=== PATIENT | female | born 1940 | race African-American/Black ===

== ENCOUNTER 2017-07-07 10:54 | Emergency (ER) | payer MEDICARE ==
[~2017-07-07] VITALS: Ht 160 cm; Wt 70.0 kg
[~2017-07-07 10:54] MED LIST: ASPIRIN EC81 MG PO; CELEBREX200 MG PO; FLEXERIL PO; FOSAMAX70 MG OR; IBUPROFEN200 M1 OR; LIPITOR20 MG PO; LIPITOR80 MG OR; LORTAB 7.57.5 MG PO; MULTI VIT PO; NAPROSYN500 MG PO; OMEPRAZOLE20 M2 PO; OS-CAL 500500 M1 PO; ULTRAM50 MG PO; VITAMIN E100 UNI1 PO
[2017-07-07 13:41] LABS: URINE BILIRUBIN - DIPSTICK NEGATIVE (NEGATIVE); URINE BLOOD DIPSTICK NEGATIVE (NEGATIVE); URINE CLARITY CLEAR; URINE COLOR YELLOW; URINE GLUCOSE - DIPSTICK NEGATIVE (NEGATIVE); URINE KETONE 40 mg/dL (NEGATIVE); URINE LEUK ESTERASE MODERATE (NEGATIVE); URINE NITRITE - DIPSTICK NEGATIVE (Negative); URINE PH 8.5 (4.5-8.0); URINE PROTEIN - DIPSTICK NEGATIVE (NEG-TRACE); URINE UROBILINOGEN - DIPSTICK 0.2 E.U./dL (0.2)
[2017-07-07 13:51] LABS: HEMATOCRIT 42.5 % (37.0-47.0); IMMATURE GRANULOCYTES 0.2 % (0.0-1.0); MEAN CELL VOLUME 79.7 fL CALC (80.0-100.0); MEAN CORPUSCULAR HGB 24.4 pG CALC (26.0-32.0); MEAN CORPUSCULAR HGB CONC 30.6 g/L CALC (32.0-36.0); NEUT# 2.4 thou/uL (2.00-7.15); RED BLOOD COUNT 5.33 mill/uL (4.20-5.60)
[2017-07-07 14:01] LABS: URINE BACTERIA FEW hpf; URINE SQUAMOUS EPITHELIAL CELL MODERATE EPI/hpf (0-FEW)
[2017-07-07 14:15] LABS: ALBUMIN 4.7 g/dL (3.2-5.0); ALKALINE PHOSPHATASE 102 u/l (38-126); ANION GAP 19 (6-22 (CALC)); BILIRUBIN, TOTAL 0.6 mg/dL (0.0-1.4); BUN 10 mg/dL (8-23); BUN/CREATININE RATIO 12 (12-20 (CALC)); CARBON DIOXIDE 27 mmol/l (22-30); CHLORIDE 104 mmol/l (95-108); CREATININE 0.9 mg/dL (0.5-1.0); GFR > 60 ML/MIN (>=60 (CALC)); GFR FOR AFR.AMER. > 60 ML/MIN (>=60 (CALC)); LIPASE 65 u/l (23-300); SGOT/AST 27 u/l (9-36); SGPT/ALT 22 u/l (11-66); SODIUM 145 mmol/l (137-146); TOTAL PROTEIN 8.1 g/dL (6.3-8.2)
[2017-07-07] MEDS ORDERED: CEPHALEXIN500 M1 PO (15:30)
[2017-07-07 15:50] VITALS: BP 118/72
== END 2017-07-07 15:57 | disposition home or self-care (01) ==
LOC: ED 10:54
PROVIDERS: Family Medicine
DX: N39.0 Urinary tract infection, site not specified (principal); E78.5 Hyperlipidemia, unspecified; B95.4 Other streptococcus as the cause of diseases classified elsewhere
CPT/HCPCS: Q9967

== ENCOUNTER 2017-07-09 06:08 | Emergency (ER) | payer MEDICARE ==
[~2017-07-09] VITALS: Ht 160 cm; Wt 80.9 kg
[~2017-07-09 06:08] MED LIST changes: +CEPHALEXIN500 M1 PO
[2017-07-09 07:36] LABS: HEMOGLOBIN 12.5 g/dl (12.0-16.0); IMMATURE GRANULOCYTES 0.3 % (0.0-1.0); MEAN CELL VOLUME 79.8 fL CALC (80.0-100.0); MEAN CORPUSCULAR HGB 24.3 pG CALC (26.0-32.0); MEAN CORPUSCULAR HGB CONC 30.5 g/L CALC (32.0-36.0); NEUT# 1.88 thou/uL (2.00-7.15); RED BLOOD COUNT 5.14 mill/uL (4.20-5.60); RED CELL DISTRI WIDTH 14.9 % (11.5-15.5)
[2017-07-09 07:47] LABS: ALBUMIN 4.4 g/dL (3.2-5.0); ALKALINE PHOSPHATASE 85 u/l (38-126); AMYLASE 45 u/l (30-110); ANION GAP 16 (6-22 (CALC)); BILIRUBIN, TOTAL 0.5 mg/dL (0.0-1.4); BUN 8 mg/dL (8-23); BUN/CREATININE RATIO 10 (12-20 (CALC)); CARBON DIOXIDE 26 mmol/l (22-30); CHLORIDE 107 mmol/l (95-108); CREATININE 0.9 mg/dL (0.5-1.0); GFR > 60 ML/MIN (>=60 (CALC)); GFR FOR AFR.AMER. > 60 ML/MIN (>=60 (CALC)); LIPASE 45 u/l (23-300); POTASSIUM 4.6 mmol/l (3.5-5.1); SGOT/AST 21 u/l (9-36); SGPT/ALT 25 u/l (11-66); SODIUM 145 mmol/l (137-146); TOTAL PROTEIN 7.4 g/dL (6.3-8.2)
[2017-07-09] MEDS ORDERED: COQ10100 MG PO (08:44)
[2017-07-09] MEDS ORDERED: CRESTOR5 MG PO (08:44)
[2017-07-09 09:31] LABS: URINE BILIRUBIN - DIPSTICK NEGATIVE (NEGATIVE); URINE BLOOD DIPSTICK NEGATIVE (NEGATIVE); URINE COLOR YELLOW; URINE GLUCOSE - DIPSTICK NEGATIVE (NEGATIVE); URINE KETONE TRACE mg/dL (NEGATIVE); URINE NITRITE - DIPSTICK NEGATIVE (Negative); URINE PH 8.5 (4.5-8.0); URINE PROTEIN - DIPSTICK NEGATIVE (NEG-TRACE)
[2017-07-09 09:32] LABS: URINE CLARITY SL CLOUDY; URINE LEUK ESTERASE SMALL (NEGATIVE)
[2017-07-09 09:40] LABS: URINE BACTERIA FEW hpf; URINE SQUAMOUS EPITHELIAL CELL FEW EPI/hpf (0-FEW)
[2017-07-09] MEDS ORDERED: ULTRAM50 M1 PO (09:52)
[2017-07-09 10:20] VITALS: BP 137/65
== END 2017-07-09 10:20 | disposition home or self-care (01) ==
LOC: ED 06:08
PROVIDERS: Emergency Medicine
DX: N39.0 Urinary tract infection, site not specified (principal); M25.551 Pain in right hip; M25.552 Pain in left hip

== ENCOUNTER 2017-11-06 10:05 | Emergency (ER) | payer MEDICARE ==
[~2017-11-06] VITALS: Ht 160 cm; Wt 81.0 kg
[~2017-11-06 10:05] MED LIST changes: +COQ10100 MG PO; +CRESTOR5 MG PO; +ULTRAM50 M1 PO
[2017-11-06] MEDS ORDERED: ALENDRONATE SOD70 MG PO (10:27)
[2017-11-06] MEDS ORDERED: VENTOLIN HFA IN (10:59)
[2017-11-06] MEDS ORDERED: ZITHROMAX250 MG PO (10:59)
[2017-11-06 11:15] VITALS: BP 144/88
== END 2017-11-06 11:15 | disposition home or self-care (01) ==
LOC: ED 10:05
DX: J40 Bronchitis, not specified as acute or chronic (principal); R05 Cough; R07.9 Chest pain, unspecified; R06.01 Orthopnea; R09.81 Nasal congestion

== ENCOUNTER 2018-10-06 09:01 | Emergency (ER) | payer MEDICARE ==
[~2018-10-06] VITALS: Ht 160 cm; Wt 90.0 kg
[~2018-10-06 09:01] MED LIST changes: +ALENDRONATE SOD70 MG PO; +VENTOLIN HFA IN; +ZITHROMAX250 MG PO
[2018-10-06] MEDS ORDERED: ULTRAM50 M1 PO (10:08)
[2018-10-06] MEDS ORDERED: FLEXERIL PO (10:08)
[2018-10-06 10:20] VITALS: BP 132/97
== END 2018-10-06 10:20 | disposition home or self-care (01) ==
LOC: ED 09:01
DX: S50.11XA Contusion of right forearm, initial encounter (principal); S60.211A Contusion of right wrist, initial encounter; R07.89 Other chest pain; W01.0XXA Fall on same level from slipping, tripping and stumbling without subsequent striking against object, initial encounter; Y93.01 Activity, walking, marching and hiking; Y92.009 Unspecified place in unspecified non-institutional (private) residence as the place of occurrence of the external cause

== ENCOUNTER 2018-11-27 17:34 | Emergency (ER) | payer MEDICARE ==
[~2018-11-27] VITALS: Ht 160 cm; Wt 81.8 kg
[2018-11-27 19:49] VITALS: BP 124/68
== END 2018-11-27 19:49 | disposition home or self-care (01) ==
LOC: ED 17:34
DX: R51 Headache (principal)

== ENCOUNTER 2018-12-02 06:13 | Inpatient (IN) | payer MEDICARE ==
[~2018-12-02] VITALS: Ht 160 cm; Wt 80.9 kg
[2018-12-02 06:51] LABS: URINE BILIRUBIN - DIPSTICK NEGATIVE (NEGATIVE); URINE BLOOD DIPSTICK TRACE-INTACT (NEGATIVE); URINE COLOR YELLOW; URINE GLUCOSE - DIPSTICK NEGATIVE (NEGATIVE); URINE KETONE 40 mg/dL (NEGATIVE); URINE NITRITE - DIPSTICK NEGATIVE (Negative); URINE PROTEIN - DIPSTICK 30 mg/dL (NEG-TRACE); URINE SPECIFIC GRAVITY >=1.030; URINE UROBILINOGEN - DIPSTICK 0.2 E.U./dL (0.2)
[2018-12-02 06:52] LABS: URINE LEUK ESTERASE MODERATE (NEGATIVE)
[2018-12-02 06:59] LABS: URINE BACTERIA FEW hpf; URINE WBC TNTC WBC/hpf (0-5)
[2018-12-02 07:16] LABS: HEMATOCRIT 46.6 % (37.0-47.0); HEMOGLOBIN 14.4 g/dl (12.0-16.0); IMMATURE GRANULOCYTES 0.5 % (0.0-5.0); MEAN CELL VOLUME 75.9 fL CALC (80.0-100.0); MEAN CORPUSCULAR HGB 23.5 pG CALC (26.0-32.0); MEAN CORPUSCULAR HGB CONC 30.9 g/L CALC (32.0-36.0); NEUT# 6.35 thou/uL (2.00-7.15); RED BLOOD COUNT 6.14 mill/uL (4.20-5.60); RED CELL DISTRI WIDTH 15.8 % (11.5-15.5)
[2018-12-02 07:28] LABS: ALBUMIN 4.7 g/dL (3.2-5.0); ALKALINE PHOSPHATASE 100 u/l (38-126); BUN 16 mg/dL (8-23); BUN/CREATININE RATIO 18 (12-20 (CALC)); CHLORIDE 102 mmol/l (95-108); CREATININE 0.9 mg/dL (0.5-1.0); GFR > 60 ML/MIN (>=60 (CALC)); GFR FOR AFR.AMER. > 60 ML/MIN (>=60 (CALC)); SGOT/AST 27 u/l (9-36); TOTAL PROTEIN 8.5 g/dL (6.3-8.2)
[2018-12-02 07:29] LABS: ANION GAP 21 (6-22 (CALC)); POTASSIUM 5.3 mmol/l (3.5-5.1)
[2018-12-02 07:30] LABS: BILIRUBIN, TOTAL 0.9 mg/dL (0.0-1.4); CARBON DIOXIDE 19 mmol/l (22-30); SODIUM 137 mmol/l (137-146)
[2018-12-02 12:28] VITALS: BP 163/84
[2018-12-02 14:23] VITALS: BP 160/105
[2018-12-02 15:01] VITALS: BP 170/105
[2018-12-02 16:01] VITALS: BP 129/68
[2018-12-02 19:45] VITALS: BP 171/91
[2018-12-02 21:48] VITALS: BP 149/90
[2018-12-03] VITALS (9 sets, daily range): BP systolic 126–171; BP diastolic 71–92
[2018-12-03 09:59] LABS: IMMATURE GRANULOCYTES 0.5 % (0.0-5.0); MEAN CELL VOLUME 76.6 fL CALC (80.0-100.0); MEAN CORPUSCULAR HGB 23.6 pG CALC (26.0-32.0); MEAN CORPUSCULAR HGB CONC 30.8 g/L CALC (32.0-36.0); NEUT# 5.87 thou/uL (2.00-7.15); RED BLOOD COUNT 5.22 mill/uL (4.20-5.60); RED CELL DISTRI WIDTH 15.3 % (11.5-15.5)
[2018-12-03 10:04] LABS: HEMOGLOBIN 12.3 g/dl (12.0-16.0)
[2018-12-03 10:11] LABS: URINE BILIRUBIN - DIPSTICK NEGATIVE (NEGATIVE); URINE BLOOD DIPSTICK TRACE-INTACT (NEGATIVE); URINE COLOR YELLOW; URINE GLUCOSE - DIPSTICK NEGATIVE (NEGATIVE); URINE KETONE 15 mg/dL (NEGATIVE); URINE LEUK ESTERASE NEGATIVE (NEGATIVE); URINE NITRITE - DIPSTICK NEGATIVE (Negative); URINE PROTEIN - DIPSTICK TRACE mg/dL (NEG-TRACE); URINE SPECIFIC GRAVITY 1.025; URINE UROBILINOGEN - DIPSTICK 0.2 E.U./dL (0.2)
[2018-12-03 10:29] LABS: ANION GAP 18 (6-22 (CALC)); BUN 14 mg/dL (8-23); BUN/CREATININE RATIO 18 (12-20 (CALC)); CARBON DIOXIDE 22 mmol/l (22-30); CHLORIDE 97 mmol/l (95-108); CREATININE 0.8 mg/dL (0.5-1.0); GFR > 60 ML/MIN (>=60 (CALC)); GFR FOR AFR.AMER. > 60 ML/MIN (>=60 (CALC)); MAGNESIUM 1.8 mg/dL (1.6-2.3); POTASSIUM 4.5 mmol/l (3.5-5.1); SODIUM 132 mmol/l (137-146)
[2018-12-04 04:20] VITALS: BP 158/93
[2018-12-04 05:25] LABS: HEMATOCRIT 37.9 % (37.0-47.0); HEMOGLOBIN 11.8 g/dl (12.0-16.0); IMMATURE GRANULOCYTES 0.2 % (0.0-5.0); MEAN CELL VOLUME 75.8 fL CALC (80.0-100.0); MEAN CORPUSCULAR HGB 23.6 pG CALC (26.0-32.0); MEAN CORPUSCULAR HGB CONC 31.1 g/L CALC (32.0-36.0); NEUT# 4.18 thou/uL (2.00-7.15); RED CELL DISTRI WIDTH 15.1 % (11.5-15.5)
[2018-12-04 05:39] LABS: ANION GAP 14 (6-22 (CALC)); BUN 11 mg/dL (8-23); BUN/CREATININE RATIO 17 (12-20 (CALC)); CARBON DIOXIDE 23 mmol/l (22-30); CHLORIDE 98 mmol/l (95-108); CREATININE 0.7 mg/dL (0.5-1.0); GFR > 60 ML/MIN (>=60 (CALC)); GFR FOR AFR.AMER. > 60 ML/MIN (>=60 (CALC)); POTASSIUM 4.8 mmol/l (3.5-5.1); SODIUM 130 mmol/l (137-146)
[2018-12-04 07:46] VITALS: BP 173/94
[2018-12-04 08:56] VITALS: BP 135/82
[2018-12-04 11:05] VITALS: BP 148/64
[2018-12-04 17:01] LABS: MAGNESIUM 1.9 mg/dL (1.6-2.3)
[2018-12-04 17:16] VITALS: BP 154/82
[2018-12-04 18:22] LABS: C-REACTIVE PROTEIN 8.2 mg/dL (0-0.9)
[2018-12-04 19:44] VITALS: BP 139/82
[2018-12-05 00:12] VITALS: BP 165/92
[2018-12-05 00:17] VITALS: BP 160/88
[2018-12-05 03:49] LABS: HEMATOCRIT 37.8 % (37.0-47.0); IMMATURE GRANULOCYTES 0.4 % (0.0-5.0); MEAN CELL VOLUME 74.9 fL CALC (80.0-100.0); MEAN CORPUSCULAR HGB 23.8 pG CALC (26.0-32.0); MEAN CORPUSCULAR HGB CONC 31.7 g/L CALC (32.0-36.0); NEUT# 4.86 thou/uL (2.00-7.15); RED BLOOD COUNT 5.05 mill/uL (4.20-5.60); RED CELL DISTRI WIDTH 15.1 % (11.5-15.5)
[2018-12-05 04:05] LABS: ANION GAP 15 (6-22 (CALC)); BUN 9 mg/dL (8-23); BUN/CREATININE RATIO 13 (12-20 (CALC)); CARBON DIOXIDE 23 mmol/l (22-30); CHLORIDE 101 mmol/l (95-108); CREATININE 0.7 mg/dL (0.5-1.0); GFR > 60 ML/MIN (>=60 (CALC)); GFR FOR AFR.AMER. > 60 ML/MIN (>=60 (CALC)); POTASSIUM 4.7 mmol/l (3.5-5.1); SODIUM 133 mmol/l (137-146)
[2018-12-05 04:34] VITALS: BP 136/78
[2018-12-05 08:29] VITALS: BP 180/100
[2018-12-05 10:35] VITALS: BP 123/73
[2018-12-05 11:18] VITALS: BP 137/78
[2018-12-05] MEDS ORDERED: KEFLEX500 M1 PO (12:07)
[2018-12-05] MEDS ORDERED: LISINOPRIL20 MG PO (12:07)
== END 2018-12-05 13:20 | DRG 690 ==
LOC: ED 06:13 → ED-I 08:40 → ED 09:09 → MS2 09:10
PROVIDERS: Family Medicine; Nurse Practitioner Family; ADMIT Internal Medicine Nephrology; ATTEND Internal Medicine Nephrology
DX: N39.0 Urinary tract infection, site not specified (principal); I10 Essential (primary) hypertension; E78.5 Hyperlipidemia, unspecified; R51 Headache; M25.562 Pain in left knee; M25.462 Effusion, left knee
CPT/HCPCS: J0131; J1650; J3370